=== PATIENT | female | born 1995 | race Caucasian/White ===

== ENCOUNTER 2018-04-24 15:06 | Inpatient (IN) | payer OTHER ==
[~2018-04-24] VITALS: Ht 162.6 cm; Wt 121.2 kg
[2018-04-24 16:41] LABS: CLARITY URINE CLOUDY (CLEAR); COLOR URINE YELLOW (YELLOW); KETONES URINE NEGATIVE (NEGATIVE); LEUKOCYTE ESTERASE URINE 3+ (NEGATIVE); NITRITE URINE NEGATIVE (NEGATIVE); OCCULT BLOOD URINE TRACE (NEGATIVE); PH URINE 8.5 (4.5-8.0); PROTEIN URINE NEGATIVE (NEGATIVE); SPECIFIC GRAVITY URINE 1.003 (1.005-1.030); UROBILINOGEN URINE 0.2 E.U./dL (0.2-1.0)
[2018-04-24 16:54] LABS: *AMPHETAMINES SCREEN URINE NEGATIVE (NEGATIVE); *BARBITURATES SCREEN URINE NEGATIVE (NEGATIVE); *BENZODIAZEPINES SCREEN URINE NEGATIVE (NEGATIVE)
[2018-04-24 16:55] LABS: *COCAINE SCREEN URINE NEGATIVE (NEGATIVE); CANNABINOID URINE SCREEN NEGATIVE (NEGATIVE); METHADONE URINE SCREEN NEGATIVE (NEGATIVE); OPIATES URINE SCREEN NEGATIVE (NEGATIVE); PHENCYCLIDINE URINE SCREEN NEGATIVE (NEGATIVE)
[2018-04-24 17:33] LABS: BASOPHILS % 0.8 % (0.0-2.0); HEMATOCRIT. 30.5 % (36.0-48.0); LYMPHOCYTES % 35.7 % (20.0-50.0); MEAN CORPUSCULAR HEMOGLOBIN 26.8 pg (28.0-32.0); MEAN CORPUSCULAR VOLUME 81.6 fL (81.0-99.0); MONOCYTES % 8.6 % (2.0-8.0); NEUTROPHILS % 50.9 % (40.0-76.0); PLATELET 328 x1000/uL (130-400); RED BLOOD CELL COUNT 3.74 mill/uL (4.2-5.4)
[2018-04-24 17:38] LABS: CHLORIDE 107 mEq/L (98-107)
[2018-04-24] MEDS ORDERED: ACETAMINOPHEN 325MG TABLET PO ONE (18:45)
[2018-04-24 21:21] VITALS: BP 124/79
[2018-04-24] MEDS ORDERED: OLAN10TA19 MT (22:26)
[2018-04-24] MEDS ORDERED: HAL5 MT (22:26)
[2018-04-24] MEDS: SODIUM CHLORIDE 0.9% 1,000 ML IV SCH (23:49)
[2018-04-24] MEDS: OLANZAPINE 10MG TABLET PO SCH (23:50)
[2018-04-25] VITALS: BP 122/70
[2018-04-25] MEDS: CEFTRIAXONE 1 G PREMIX 50 ML IV SCH (00:49)
[2018-04-25] MEDS: HYDROCODONE/ACETAMINOPHEN 5/325MG TABLET PO PRN ×2 (00:49→08:59)
[2018-04-25 04:00] VITALS: BP 132/77
[2018-04-25 08:00] VITALS: BP 115/65
[2018-04-25] MEDS: HALOPERIDOL 5MG TABLET PO SCH (08:59)
[2018-04-25] MEDS: SODIUM CHLORIDE 0.9% 1,000 ML IV SCH ×2 (08:59→18:12)
[2018-04-25] MEDS ORDERED: SULFAMETHOXAZOLE/TRIMETHOPRIM 800/160MG TABLET PO SCH (09:00)
[2018-04-25 12:00] VITALS: BP 107/71
[2018-04-25 13:09] LABS: PHOSPHORUS 4.3 mg/dL (2.5-4.9)
[2018-04-25 16:00] VITALS: BP 130/83
[2018-04-25 20:36] VITALS: BP 123/86
[2018-04-25] MEDS ORDERED: MEDICATION NOT ON FORMULARY EA (Olanzapine 1 TAB) MT SCH (21:00)
[2018-04-25] MEDS: OLANZAPINE 10MG TABLET PO SCH (21:03)
[2018-04-26 00:34] VITALS: BP 119/71
[2018-04-26] MEDS: CEFTRIAXONE 1 G PREMIX 50 ML IV SCH (01:02)
[2018-04-26] MEDS: HYDROCODONE/ACETAMINOPHEN 5/325MG TABLET PO PRN (02:56)
[2018-04-26 04:00] VITALS: BP 126/82
[2018-04-26] MEDS: SODIUM CHLORIDE 0.9% 1,000 ML IV SCH (04:12)
[2018-04-26] MEDS ORDERED: SODIUM CHLORIDE 0.45% 1,000 ML IV SCH (08:30)
[2018-04-26 08:33] VITALS: BP 136/77
[2018-04-26 08:57] LABS: BASOPHILS % 0.7 % (0.0-2.0); EOSINOPHILS % 4.9 % (0.0-5.0); HEMATOCRIT. 31.5 % (36.0-48.0); HEMOGLOBIN. 10.1 g/dL (12.0-16.0); LYMPHOCYTES % 39.8 % (20.0-50.0); MEAN CORPUSCULAR HEMOGLOBIN 26.5 pg (28.0-32.0); MONOCYTES % 6.4 % (2.0-8.0); NEUTROPHILS % 48.2 % (40.0-76.0); PLATELET 319 x1000/uL (130-400); RED BLOOD CELL COUNT 3.79 mill/uL (4.2-5.4); RED CELL DISTRIBUTION WIDTH 14.6 % (11.6-14.6)
[2018-04-26] MEDS: HALOPERIDOL 5MG TABLET PO SCH (08:58)
[2018-04-26 12:08] LABS: CREATINE KINASE 93 IU/L (26-192)
[2018-04-26 12:57] VITALS: BP 118/74
[2018-04-26 15:57] VITALS: BP 151/76
[2018-04-29 17:06] LABS: ANTI-NUCLEAR ANTIBODIES DIRECT Positive (Negative)
[2018-04-30 05:19] LABS: COMPLEMENT C3 168 mg/dL (82-167)
== END 2018-04-26 18:10 | disposition short-term general hospital (02) | DRG 469 ==
LOC: ER 15:06 → 6WST 19:31 → ENRESERV 20:08 → EDBEDREQ 21:16
PROVIDERS: ADMIT Internal Medicine; ATTEND Internal Medicine
DX: N17.0 Acute kidney failure with tubular necrosis (principal); E87.3 Alkalosis; E87.0 Hyperosmolality and hypernatremia; E66.01 Morbid (severe) obesity due to excess calories; E87.1 Hypo-osmolality and hyponatremia; F25.9 Schizoaffective disorder, unspecified; D64.9 Anemia, unspecified; S49.91XA Unspecified injury of right shoulder and upper arm, initial encounter; F32.9 Major depressive disorder, single episode, unspecified; R73.03 Prediabetes; N39.0 Urinary tract infection, site not specified; Y09 Assault by unspecified means; Z79.899 Other long term (current) drug therapy; Y08.89XA Assault by other specified means, initial encounter; Y93.89 Activity, other specified; Y92.89 Other specified places as the place of occurrence of the external cause; Y99.8 Other external cause status; Z68.42 Body mass index [BMI] 45.0-49.9, adult
CPT/HCPCS: 36415; 71045; 73030; 76770; 80048; 80178; 80305; 82550; 82570; 82668; 82962; 83036; 83735; 84100; 84300; 86038; 86160; 93005; 99285; J0696; J1630; J7030